=== PATIENT | female | born 1945 | race Caucasian/White ===

== ENCOUNTER 2016-12-15 17:33 | Emergency (ER) | payer BC ==
--- NOTE | 2016-12-15 18:11 | ED ---
Head Injury HPI - General Chief complaint: Head Injury Stated complaint: head trauma; coumadin patient Time Seen by Provider: 12/15/16 17:33 Source: patient, RN notes reviewed Mode of arrival: EMS Limitations: no limitations - History of Present Illness Initial comments: This is a 71-year-old female who was seen a chair when a large tent pole fell on her. Instructed back for had also the left side of her jaw. She complains of some occipital head pain some slight neck pain and left jaw pain. She had no loss of consciousness no blurry vision no loss of function to her upper or lower extremities with exception of her left hand where she had carpal tunnel surgery yesterday no other injuries reported she is on Coumadin she was brought in for evaluation. MD Complaint: head injury, other Place: outdoors - Related Data Home Medications Medication Instructions Recorded Confirmed ALPRAZolam [Xanax] 0.25 mg PO HS 12/15/16 12/15/16 Acetaminophen/Diphenhydramine 2 tab PO HS PRN 12/15/16 12/15/16 [Tylenol PM 500-25mg] Aspirin [Adult Low Dose Aspirin EC] 81 mg PO DAILY 12/15/16 12/15/16 Lisinopril-Hctz 20-25 mg 1 tab PO DAILY 12/15/16 12/15/16 [Zestoretic 20-25] Potassium 99 mg PO DAILY 12/15/16 12/15/16 Warfarin [Coumadin] 2.5 mg PO TH 12/15/16 12/15/16 Warfarin [Coumadin] 5 mg PO SUMOTUWEFRSA 12/15/16 12/15/16 Allergies/Adverse reactions: Allergies Allergy/AdvReac Type Severity Reaction Status Date / Time No Known Allergies Allergy Verified 12/15/16 18:32 Review of Systems ROS Statement: Those systems with pertinent positive or pertinent negative responses have been documented in the HPI. ROS Other: All systems not noted in ROS Statement are negative. Past Medical History Past Medical History: Hypertension Additional Past Medical History / Comment(s): blood clotting disorder History of Any Multi-Drug Resistant Organisms: None Reported Past Surgical History: Cholecystectomy, Heart Catheterization With Stent, Orthopedic Surgery Additional Past Surgical History / Comment(s): carpal tunnel Past Psychological History: No Psychological Hx Reported Smoking Status: Never smoker Past Alcohol Use History: Occasional Past Drug Use History: None Reported General Exam - General Exam Comments Initial Comments: This is a well-developed well-nourished awake alert oriented 3 female she does demonstrate a Glascow coma scale of 15. Limitations: no limitations General appearance: alert Head exam: Present: normocephalic, normal inspection, other (Tennis palpation of the occipital scalp on the left no definite step-off or crepitation no ecchymosis seen at this time there is some mild tenderness mostly in the left occipital parietal region. No abrasion or open was receiving) Eye exam: Present: normal appearance, PERRL, EOMI. Absent: scleral icterus, conjunctival injection, periorbital swelling ENT exam: Present: normal exam, normal oropharynx, mucous membranes moist, other (Some mild tenderness over the left mandible but no step-off or crepitation on her canals are clear) Neck exam: Present: normal inspection, full ROM. Absent: tenderness, meningismus, lymphadenopathy Respiratory exam: Present: normal lung sounds bilaterally. Absent: respiratory distress, wheezes, rales, rhonchi, stridor Cardiovascular Exam: Present: regular rate, normal rhythm, normal heart sounds. Absent: systolic murmur, diastolic murmur, rubs, gallop, clicks Extremities exam: Present: full ROM, normal capillary refill, other (Dressing placed over the left wrist no functional deficits). Absent: tenderness, pedal edema, joint swelling, calf tenderness Back exam: Present: normal inspection Neurological exam: Present: alert, oriented X3, CN II-XII intact Psychiatric exam: Present: normal affect, normal mood Skin exam: Present: warm, dry, intact, normal color. Absent: rash Course Vital Signs 12/15/16 17:38 Temperature 98.5 F Pulse Rate 75 Respiratory 16 Rate Blood Pressure 213/90 O2 Sat by Pulse 98 Oximetry Medical Decision Making - Medical Decision Making I did discuss the findings with the patient. CT is negative except for degenerative changes of the neck. INR 2.2 with patient is awake alert oriented with Cheryle 15 she was given options which include being transferred for observation or being discharged. She does not want to be transferred she chooses to go home. She was informed that what to look out for and was invited back at any time. Feels that she reasonable decision on the patient's part. - Lab Data Lab Results 12/15/16 Range/Units 18:20 PT 21.5 H (9.0-12.0) sec INR 2.2 H (<1.2) - Radiology Data Radiology results: report reviewed (I did review the imaging and reports no acute findings.), image reviewed Disposition Clinical Impression: Scalp contusion Disposition: HOME SELF-CARE Condition: Good Instructions: Scalp Contusion in Adults (ED) Referrals: Adam Haynes DO [Primary Care Provider] - 1-2 days
[2016-12-15 18:33] LABS: INR 2.2 (<1.2); Prothrombin Time 21.5 sec (9.0-12.0)
--- NOTE | 2016-12-15 18:56 | CT ---
EXAMINATION TYPE: CT brain dhara fisher con DATE OF EXAM: 12/15/2016 COMPARISON: 10/26/2013 HISTORY: Head trauma, on coumadin. CT DLP: 1455.9 mGycm. Automated Exposure Control for Dose Reduction was Utilized. TECHNIQUE: CT scan of the head and cervical spine are performed without contrast. FINDINGS: There is no acute intracranial hemorrhage, mass effect, or midline shift identified. The ventricles and sulci are symmetrically prominent related to age-related volume loss. The globes are intact and the visualized sinuses are clear. Incidental note is made of a high riding jugular bulb a nd osteopenia. Atherosclerosis of intracranial vasculature is noted. Hyperostosis frontalis internus and talus is also incidentally seen. Cervical spine is visualized in its entirety from C1 through upper thoracic levels and demonstrates s atisfactory alignment without evidence of acute fracture or dislocation. Prevertebral soft tissue ap pears within normal limits. The C1-C2 articulation is unremarkable. Degenerative disc disease is pr esent at C5-6 and C6-7. There is straightening of the usual cervical lordosis. IMPRESSION: 1. There is no acute fracture or dislocation evident in the cervical spine. 2. No acute intracranial hemorrhage, mass effect, or midline shift is seen. 3. Multilevel degenerative disc disease of the cervical spine.
--- NOTE | 2016-12-15 19:03 | CT ---
EXAMINATION TYPE: CT facial bones wo con DATE OF EXAM: 12/15/2016 HISTORY: Head trauma, on coumadin. CT DLP: 615.9 mGycm. Automated Exposure Control for Dose Reduction was Utilized. TECHNIQUE: CT scan of the head is performed without contrast. COMPARISON: None. FINDINGS: Extensive spray artifact partially obscures visualization of the oropharynx. Rightward na uche septal deviation is seen although the nasal septum remains intact. There is no evidence of acute fracture or dislocation. Paranasal sinuses remain well aerated. Maxillary spine and nasal bone are in tact. No soft tissue swelling is saline. Orbits are symmetric. Right ocular lens is absent. Extraocul ar muscles are also symmetric. No retrobulbar or intraconal fat stranding is seen. Visualized portion s of the brain are discussed in the CT brain dictation of the same day. Mandibular condyles are locat ed within the mandibular fossa. IMPRESSION: No facial bone fracture.
[2016-12-15 19:16] VITALS: BP 168/79; PULSE 77; RESP 18; TEMP 97.6
== END 2016-12-15 19:16 | disposition home or self-care (01) ==
LOC: EC 17:33
DX: S00.03XA Contusion of scalp, initial encounter (principal); M54.2 Cervicalgia; R68.84 Jaw pain; I10 Essential (primary) hypertension; R40.2412 Glasgow coma scale score 13-15, at arrival to emergency department; D68.9 Coagulation defect, unspecified; Z79.01 Long term (current) use of anticoagulants; Z79.82 Long term (current) use of aspirin; Z79.899 Other long term (current) drug therapy; W20.8XXA Other cause of strike by thrown, projected or falling object, initial encounter; Y92.89 Other specified places as the place of occurrence of the external cause
CPT/HCPCS: 36415; 70450; 70486; 72125; 85610; 99284

== ENCOUNTER → 2017-09-17 | Outpatient (CLI) | payer BC ==
--- NOTE | 2017-09-17 07:56 | MR ---
EXAMINATION TYPE: MR knee LT wo con DATE OF EXAM: 09/17/2017 COMPARISON: NONE HISTORY: 71-year-old female left knee pain TECHNIQUE: Multiplanar, multisequence imaging of the left knee is performed without IV contrast. FINDINGS: ACL is diminutive and shows increased signal suggesting chronic partial tear probably involving at le ast half the fibers. Borderline thickening of the PCL which also shows intermediate signal suggesting partial tear. Extensive degenerative signal extends throughout the medial meniscus. There is a tear of the posterio r root and extrusion of the meniscal body. Moderate to severe irregular cartilage loss along the mid medial compartment with marginal spurring a nd subchondral cystic change and reactive marrow edema especially along the medial lip of the tibial plateau. Oblique tear extends along the anterior horn of the lateral meniscus. Partial tear at the posterior r oot of the lateral meniscus also noted. There is marginal spurring in the lateral compartment with so me intracondylar spurring along the mid weightbearing aspect of the tibial articular surface and mild ly irregular cartilage loss noted. Focal subchondral cystic change along the inferior aspect of the medial patellar facet with overlying irregular cartilage loss which also affects the medial trochlear facet. Extensor mechanism is intact. There is a moderate knee joint effusion with mild chronic synovitis and a moderate-sized Villarreal's cyst measuring 6.7 x 3.3 cm. Normal popliteal artery anatomy. Mild diffuse muscular atrophy. No suspicious bone marrow replacement . IMPRESSION: 1. 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 The body of the meniscus is extruded secondary to a posterior root tear. 2. Oblique tear extending along the anterior horn of the lateral meniscus and a partial tear at the p osterior root. 3. Chronic partial thickness tear of the ACL involving greater than half the fibers. Findings also wolfe ggest mucoid degeneration versus partial PCL tear. 4. Mild overall patellofemoral compartment osteoarthrosis though with more moderate focal cartilage l oss along the inferior aspect of the medial facets. 5. Moderate-sized leaking Villarreal's cyst, moderate knee joint effusion, and mild chronic synovitis.
== END | disposition home or self-care (01) ==
LOC: RADMRIMAIN 06:05
PROVIDERS: ATTEND Orthopaedic Surgery
DX: S83.282A Other tear of lateral meniscus, current injury, left knee, initial encounter (principal); S83.512A Sprain of anterior cruciate ligament of left knee, initial encounter; M17.12 Unilateral primary osteoarthritis, left knee; M71.22 Synovial cyst of popliteal space [Baker], left knee; M65.9 Synovitis and tenosynovitis, unspecified; M19.012 Primary osteoarthritis, left shoulder; M65.812 Other synovitis and tenosynovitis, left shoulder; R53.1 Weakness; Z48.89 Encounter for other specified surgical aftercare; Z87.828 Personal history of other (healed) physical injury and trauma